=== PATIENT | male | born 1975 | race Caucasian/White ===

== ENCOUNTER 2023-03-19 11:39 | Emergency (ER) | payer OTHER, SELFPAY ==
[2023-03-19 12:19] VITALS: BP 135/91; PULSE 65; RESP 18; TEMP 36.7; O2SAT 99
--- NOTE | 2023-03-19 12:48 | ED.GENADULT ---
HPI - General Adult General Chief complaint: Skin/Abscess/Foreign Body Stated complaint: Insect Bite Lt Leg Time Seen by Provider: 03/19/23 12:48 Source: patient Mode of arrival: ambulatory Limitations: no limitations History of Present Illness HPI narrative: 47-year-old male patient presents to the [facility] with complaints of a rash to the left lower leg along with body aches, chills and feeling feverish and achy. 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 Patient states that he had been having some pain to the left lower leg and noticed a rash to the area today. Related Data Allergies Allergy/AdvReac Type Severity Reaction Status Date / Time Penicillins AdvReac Mild Hives Verified 03/19/23 12:54 Review of Systems Review of Systems: CONSTITUTIONAL: Denies fever, chills, or sweats. EYES: Denies visual changes, redness, or discharge. ENT: Denies rhinorrhea, congestion, sore throat, or otalgia. CARDIOVASCULAR: Denies chest pain, palpitations, or edema. RESPIRATORY: Denies cough or dyspnea. GASTROINTESTINAL: Denies abdominal pain, nausea, vomiting, or diarrhea. GENITOURINARY: Denies dysuria or hematuria. SKIN: Positive left lower leg rash with pain, denies itching. MUSCULOSKELETAL: Denies back pain, joint pain, or myalgia. NEUROLOGIC: Denies headache, numbness, or weakness. PSYCHIATRIC: Denies anxiety or depression. [facility] Past Medical History Medical History BMI 34.0-34.9,adult COVID-19 Dietary counseling and surveillance (10/11/16) Elevated calcitonin level Encounter for general adult medical examination without abnormal findings Encounter for screening for lipoid disorders Encounter for screening for malignant neoplasm of prostate Essential (primary) hypertension Hand numbness Lumbar degenerative disc disease Mixed hyperlipidemia Oral mucosal lesion Oral ulcer Surgical History Surgical History Previous back surgery Family History Family History Father Brain cancer Mother Bile duct cancer Sibling No problems noted. 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 There is no relevant family history pertinent to the presenting complaint. Exam Narrative: GENERAL: Well-appearing, well-nourished, and in no acute distress. HEAD: Normocephalic, atraumatic. EYES: PERRLA and EOMI. ENT: Nares clear, no rhinorrhea or epistaxis. Mucous membranes moist. NECK: Supple. No lymphadenopathy CHEST: Clear to auscultation. No respiratory distress. HEART: Regular rate and rhythm. No murmur heard. Normal peripheral pulses. ABDOMEN: Soft, nontender, nondistended, normal active bowel sounds. EXTREMITIES: Normal range of motion. No edema. SKIN: Warm, dry, no rash. patient has approximately 17 x 17 cm area of redness and warmth to the anterior lower extremity below the knee. There is no open wounds and no evidence of any blister-like rash. It is very tender to the touch. Slightly swollen compared to the right lower leg. NEURO: No focal deficits. Alert and oriented x3. Course Course Level of Care: Express Care Visit Vital Signs Vital signs: Vital Signs Temperature 36.7 C 03/19/23 12:1
== END 2023-03-19 13:07 | disposition home or self-care (01) ==
PROVIDERS: Emergency Provider Nurse Practitioner Family; PCP Family Medicine
DX: L03.116 Cellulitis of left lower limb (principal); I10 Essential (primary) hypertension; M51.36 Other intervertebral disc degeneration, lumbar region; E78.2 Mixed hyperlipidemia; Z86.16 Personal history of COVID-19
CPT/HCPCS: 99213; G0463

== ENCOUNTER 2023-03-21 08:23 | Emergency (ER) | payer OTHER, SELFPAY ==
--- NOTE | ~2023-03-21 | US_ITS ---
EXAMINATION: US venous doppler [facility] DATE: 03/21/2023 10:40 INDICATION: Lower limb pain, swelling and erythema. TECHNIQUE: Grayscale ultrasound images without and with compression and Doppler ultrasound images of the left lower extremity veins were obtained. COMPARISON: None. FINDINGS: The visualized portions of left common femoral vein, profunda (deep) femoral vein, femoral vein, popl iteal vein, peroneal veins, posterior tibial veins, gastrocnemius vein and greater saphenous vein out flow are patent. A few normal-sized and appearing left inguinal lymph nodes. IMPRESSION: 1. No deep venous thrombosis in the left lower limb. Reviewed, dictated and finalized at location A.
--- NOTE | ~2023-03-21 | XR_ITS ---
XR tibia fibula LT 2V DATE: 03/21/2023 08:54 INDICATION: Cellulitis of left lower leg for 2 days TECHNIQUE: AP and lateral views of left lower COMPARISON: None FINDINGS: Moderate plantar and more prominent posterior calcaneal enthesopathy. No fracture or dislocation, periosteal reaction or bone destruction is detected. Normal alignment at the knee and ankle joints. No subcutaneous emphysema or abnormal soft tissue calcification. IMPRESSION: Plantar and posterior calcaneal enthesopathy No bony abnormality of the tibia or fibula Reviewed, dictated and finalized at location L.
[2023-03-21 08:25] VITALS: BP 132/90; PULSE 76; RESP 16; TEMP 36.7; O2SAT 98
[2023-03-21 08:53] LABS: Basophils Percent Auto 0.5 % (0.2-1.2); Eosinophils Percent Auto 0.2 % (0-4.4); Hematocrit 43.5 % (42.0-52.0); Hemoglobin 14.8 g/dL (14.0-18.0); Immature Granulocyte Absolute 0.03 K/mm3 (0.00-0.031); Immature Granulocyte Percent A 0.4 % (0-0.5); Lymphocytes Percent Auto 20.8 % (18.3-44.2); Mean Corpuscular Hemoglobin 30.9 pg (26-34); Mean Corpuscular Volume 90.8 fl (80-100); Mean Platelet Volume 9.7 fl (7.4-10.4); Monocytes Percent Auto 11.6 % (2.6-8.5); Neutrophils Absolute Auto 5.5 K/mm3 (1.3-6.7); Neutrophils Percent Auto 66.5 % (45.5-73.1); Platelet Count Result 239 k/mm3 (150-375); Red Blood Count 4.79 M/mm3 (4.6-6.20); Red Cell Distribution Width 12.1 % (11.5-14.5); White Blood Count 8.2 K/mm3 (4.5-10.0)
[2023-03-21 09:03] LABS: Partial Thromboplastin Time 31.5 SECONDS (22.3-36.8)
[2023-03-21 09:04] LABS: Alanine Aminotransferase 18 U/L (6-50); Albumin Level 4.2 g/dL (3.5-5.1); Alkaline Phosphatase 82 U/L (38-126); Anion Gap 14 mmol/L (8-16); Aspartate Amino Transferase 20 U/L (17-59); Bilirubin,Total 0.4 mg/dL (0.2-1.3); Blood Urea Nitrogen 14 mg/dL (9-20); Calcium 9.4 mg/dL (8.4-10.2); Carbon Dioxide 21 mmol/L (22-30); Chloride 102 mmol/L (98-107); Estimated CRCL calculation 111 ml/min; Estimated Glomerular Filt Rate > 60; Glucose 111 mg/dL (65-110); Potassium 4.2 mmol/L (3.4-5.0); Sodium 137 mmol/L (137-145)
[2023-03-21 09:16] LABS: CRP 16.8 mg/dL (<1.0)
--- NOTE | 2023-03-21 09:43 | ED.SKABFB ---
HPI - Skin/Abscess/Foreign Bdy General Chief complaint: Skin/Abscess/Foreign Body Stated complaint: LLE infection Time Seen by Provider: 03/21/23 09:27 Source: patient Mode of arrival: ambulatory Limitations: no limitations History of Present Illness HPI narrative: This is a 47 year old male that presents to the ER for rash to the left lower extremity ongoing since Monday. Reports starting last Monday he started to have fevers and chills. He noted some redness and swelling to his left lower extremity on Monday. Went to urgent care and was started on oral antibiotics for cellulitis. He has had 2-1/2 days of doxycycline with little relief. Today he started to note some blistering to the area. Denies numbness. Related Data Allergies Allergy/AdvReac Type Severity Reaction Status Date / Time Penicillins AdvReac Mild Hives Verified 03/21/23 08:28 Review of Systems Review of Systems: CONSTITUTIONAL: Reports fever SKIN: Reports rash. Denies itching. NEUROLOGIC: Denies numbness All systems reviewed & are unremarkable except as noted in HPI and below PMFSH Past Medical History Medical History BMI 34.0-34.9,adult COVID-19 Dietary counseling and surveillance (10/11/16) Elevated calcitonin level Encounter for general adult medical examination without abnormal findings Encounter for screening for lipoid disorders Encounter for screening for malignant neoplasm of prostate Essential (primary) hypertension Hand numbness Lumbar degenerative disc disease Mixed hyperlipidemia Oral mucosal lesion Oral ulcer Surgical History Surgical History Previous back surgery Family History Family History Father Brain cancer Mother Bile duct cancer Sibling No problems noted. 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 HEAD: Normocephalic, atraumatic. EYES: EOMI. CHEST: Clear to auscultation. No respiratory distress. No wheezes rales or rhonchi HEART: Regular rate and rhythm. No murmur heard. Normal peripheral pulses. EXTREMITIES: Normal range of motion. Mild edema with redness to the left lower extremity. Patchy erythema with vesicular lesions to the left lower extremity. Normal DP pulse. Normal sensation SKIN: Warm, dry, no rash. NEURO: No focal deficits. Alert and oriented x3. PSYCH: Normal mood and affect Course Vital Signs Vital signs: Vital Signs Temperature 98.1 F 03/21/23 08:25 Pulse Rate 76 03/21/23 08:25 Respiratory Rate 16 03/21/23 08:25 Blood Pressure 132/90 03/21/23 08:25 Pulse Oximetry 98 03/21/23 08:25 Temperature 98.1 F 03/21/23 08:25 Pulse Rate 76 03/21/23 08:25 Respiratory Rate 16 03/21/23 08:25 Blood Pressure 132/90 03/21/23 08:25 Pulse Oximetry 98 03/21/23 08:25 MDM - Skin/Abscess/Foreign Bdy MDM Narrative Medical decision making narrative: Patient presents emergency department for a rash present to his left leg over the last 3 days. He is afebrile and nontoxic-appearing. CBC is without leukocytosis. Inflammatory markers are elevated. No concerning findings on metabolic panel. Left tib-fib x-ray without acute bony abnormality. Left lower extremity venous Doppler without evidence of DVT. Patient will
[2023-03-21 10:26] LABS: Erythrocyte Sedimentation Rate 23 mm/hr (0-20)
== END 2023-03-21 12:32 | disposition home or self-care (01) ==
PROVIDERS: General Practice; Emergency Provider Physician Assistant; PCP Family Medicine
DX: R21 Rash and other nonspecific skin eruption (principal); I10 Essential (primary) hypertension; E78.2 Mixed hyperlipidemia; Z86.16 Personal history of COVID-19; Z77.22 Contact with and (suspected) exposure to environmental tobacco smoke (acute) (chronic)
CPT/HCPCS: 36415; 73590; 80053; 85025; 85610; 85652; 85730; 86140; 87040; 93971; 99284